=== PATIENT | female | born 1985 | race Caucasian/White ===

== ENCOUNTER 2017-02-26 18:16 | Emergency (ER) | payer SELFPAY ==
[2017-02-26] MEDS ORDERED: OXYCODONE-ACETAMINOPHEN 5-325 MG TABLET PO ONE (19:56)
--- NOTE | 2017-02-26 19:58 | ER Document Report ---
ED General - General Chief Complaint: Bloody Stools Stated Complaint: RIGHT KNEE PAIN Time Seen by Provider: 02/26/17 19:47 Mode of Arrival: Ambulatory Information source: Patient Notes: This is a 31-year-old female with right knee pain. Patient states she initially [place] the [place]. She states she had twisted it at that time (3 weeks ago) she was having a lot of pain and swelling. She states last night she was outside smoking a cigarette turned and twisted the knee and she fell right down. She complains of pain over the medial aspect of the knee. TRAVEL OUTSIDE OF THE [place] IN LAST 30 DAYS: No - HPI Onset: Last week Onset/Duration: Gradual Quality of pain: Dull Severity: Severe Pain Level: 5 Associated symptoms: denies: Chest pain, Fever, Shortness of breath Exacerbated by: Movement Relieved by: Remaining still Similar symptoms previously: Yes Recently seen / treated by doctor: No - Related Data Allergies/Adverse Reactions: latex Allergy (Verified 02/26/17 18:30) levofloxacin [From Levaquin] Allergy (Verified 02/26/17 18:30) metronidazole [From Flagyl] Allergy (Verified 02/26/17 18:30) morphine Allergy (Verified 02/26/17 18:30) nalbuphine [From Nubain] Allergy (Verified 02/26/17 18:30) nitrofurantoin [From Macrodantin] Allergy (Verified 02/26/17 18:30) Penicillins Allergy (Verified 02/26/17 18:30) sulfamethoxazole [From Bactrim] Allergy (Verified 02/26/17 18:30) trimethoprim [From Bactrim] Allergy (Verified 02/26/17 18:30) ketorolac [From Toradol] Adverse Reaction (Verified 02/26/17 18:30) ivp dye Allergy (Uncoded 02/26/17 18:30) Past Medical History - General Information source: Patient - Social History Smoking Status: Current Every Day Smoker Cigarette use (# per day): Yes - 1 pack per day Chew tobacco use (# tins/day): No Frequency of alcohol use: None Drug Abuse: None Lives with: Family Family History: Reviewed & Not Pertinent Patient has suicidal ideation: No Patient has homicidal ideation: No - Past Medical History Cardiac Medical History: Reports: Hx Atrial Fibrillation - was on inderol, stopped taking Renal/ Medical History: Denies: Hx Peritoneal Dialysis Past Surgical History: Reports: Hx Hysterectomy - Immunizations Hx Diphtheria, Pertussis, Tetanus Vaccination: Yes Review of Systems - Review of Systems Constitutional: denies: Chills, Fever EENT: No symptoms reported Cardiovascular: No symptoms reported Respiratory: No symptoms reported Gastrointestinal: No symptoms reported Genitourinary: No symptoms reported Female Genitourinary: No symptoms reported Musculoskeletal: See HPI Skin: No symptoms reported Hematologic/Lymphatic: No symptoms reported Neurological/Psychological: No symptoms reported Physical Exam - Vital signs Vitals: Temp Pulse Resp BP Pulse Ox 97.9 F 117 H 20 121/84 100 02/26/17 18:31 02/26/17 18:31 02/26/17 18:31 02/26/17 18:31 02/26/17 18:31 Notes: Physical exam: GENERAL: 31-year-old female, alert and oriented 3, no acute distress HEAD: Atraumatic, normocephalic. EYES: Pupils equal round and reactive to light, extraocular movements intact, sclera anicteric, conjunctiva are normal. ENT: TMs normal, nares patent, oropharynx clear without exudates. Moist mucous membranes. NECK: Normal range of motion, supple without lymphadenopathy or JVD. LUNGS: Breath sounds clear to auscultation bilaterally and equal. No wheezes rales or rhonchi. HEART: Regular rate and rhythm without murmurs, rubs or gallops. ABDOMEN: Soft, normoactive bowel sounds. No tenderness to palpation. No guarding, no rebound. No masses appreciated. EXTREMITIES: Right knee does show some swelling. There is no erythema of the skin or ecchymoses. She seems tender along the medial aspect of the knee. While there is no madhav laxity on stressing of the knee joint, she does have significant tenderness when stressing the medial aspect of the knee. Distally, she is good cap refill and a good dorsal pedal pulse and her skin is otherwise clear. NEUROLOGICAL: Cranial nerves II through XII grossly intact. Normal speech, normal gait. PSYCH: Normal mood, normal affect. SKIN: Warm, Dry, normal turgor, no rashes or lesions noted. Course - Vital Signs Vital signs: Temp Pulse Resp BP Pulse Ox 98.6 F 90 18 119/89 H 98 08/20/17 21:51 02/26/17 21:51 02/26/17 21:51 02/26/17 21:51 02/26/17 21:51 - Diagnostic Test Radiology reviewed: Image reviewed, Reports reviewed - Knee x-ray shows no fracture Discharge - Discharge Clinical Impression: Right knee injury Condition: Stable Disposition: HOME, SELF-CARE Instructions: Suspected Internal Knee Injury ([facility]), Knee Immobilizing Splint ( [facility]) Additional Instructions: Recommendations: Rest, use the knee immobilizer and crutches while up on your feet ( nonweightbearing as much as possible). You can take the splint off for showers. Continue ibuprofen regularly for the next few days. Take the Percocet as needed. Follow-up with an orthopedic surgeon: I gave you the number to the orthopedic surgeon affiliated with the Hospital: Call them and let them know you do not have insurance but you were in the ER for any injury and see if they have any reduced fees. The pain medicine you're taking prescribed as a narcotic. There are several important things you should know about this medicine: 1. This medicine contains Tylenol: It is important that you do not take Tylenol (or acetaminophen) while on this medicine. Tylenol is metabolized by the liver and taking too much Tylenol (acetaminophen) can lay to liver damage and even liver failure. 2. Taking narcotics for too long can lead to physical and mental dependence. Take this medicine only if really needed and in the lowest quantity to achieve pain relief. 3. Do not drink alcohol while on this medicine. Alcohol interacts with narcotics and the combination can be dangerous. 4. Do not drive or operate machinery while on this medicine. 5. Narcotics do cause constipation, so drink plenty of fluids and daily stool softeners. Prescriptions: Oxycodone HCl/Acetaminophen [Percocet 5-325 mg Tablet] 1 - 2 tab PO ASDIR PRN # 25 tablet PRN Reason: Referrals: ISELA RODRIGUEZ MD [ACTIVE STAFF] - Follow up as needed
--- NOTE | 2017-02-26 20:21 | RADIOLOGY REPORT (SQ) ---
EXAM DESCRIPTION: KNEE RIGHT 3 VIEWS COMPLETED DATE/TIME: 02/26/2017 8:13 pm REASON FOR STUDY: medial knee pain COMPARISON: None. NUMBER OF VIEWS: Three views. TECHNIQUE: AP, lateral, and sunrise patella radiographic images acquired of the right knee. LIMITATIONS: None. FINDINGS: MINERALIZATION: Normal. BONES: No acute fracture or dislocation. No worrisome bone lesions. JOINT: No effusion. SOFT TISSUES: No soft tissue swelling. No radio-opaque foreign body. OTHER: No other significant finding. IMPRESSION: NEGATIVE STUDY OF THE RIGHT KNEE. NO RADIOGRAPHIC EVIDENCE OF ACUTE INJURY. TECHNICAL DOCUMENTATION: JOB ID: [id number] [employer]- All Rights Reserved
[2017-02-26 21:54] VITALS: BP 119/89
== END 2017-02-26 21:56 | disposition home or self-care (01) ==
LOC: ER 18:16
DX: S89.91XA Unspecified injury of right lower leg, initial encounter (principal); M25.561 Pain in right knee; X58.XXXA Exposure to other specified factors, initial encounter; F17.210 Nicotine dependence, cigarettes, uncomplicated; Z91.040 Latex allergy status; Z88.1 Allergy status to other antibiotic agents; Z88.5 Allergy status to narcotic agent; Z88.0 Allergy status to penicillin; Z91.041 Radiographic dye allergy status
CPT/HCPCS: 99283; 73562; L1830